=== PATIENT | male | born 1950 | race Caucasian/White ===

== ENCOUNTER → 2019-11-02 | Outpatient (CLI) | payer MEDICARE ==
--- NOTE | 2019-11-02 12:16 | ECGEPIP ---
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 By Navarro criteria No prior tracing for comparison Electronically Signed on 11-02-2019 12:16:22 EST by Serafin Israel
== END ==
LOC: M EKG 11:28
PROVIDERS: ATTEND Ophthalmology Retina Specialist
DX: H33.059 Total retinal detachment, unspecified eye (principal)

== ENCOUNTER → 2020-03-15 | Outpatient (CLI) | payer MEDICARE ==
[~2020-03-15] MED LIST: ASPI1CHW3 PO; ATOR80TA59 PO; GABA-843 PO; INDA25TAB PO; LISI-538 PO; LISI-542 PO
== END ==
LOC: M LABSMTC 12:15
PROVIDERS: ATTEND Ophthalmology Retina Specialist
DX: Z11.59 Encounter for screening for other viral diseases (principal)
CPT/HCPCS: C9803; U0003

== ENCOUNTER 2020-05-01 12:53 | Inpatient (IN) | payer MEDICARE ==
[~2020-05-01] VITALS: Ht 172.7 cm; Wt 90.3 kg
--- NOTE | 2020-05-01 13:50 | HPEPDOC ---
Cutter Barrel Drum Note DATE OF ADMISSION: 05-01-20 DATE OF SERVICE: 05-02-20 TIME OF ADMISSION: Please refer to physician's admission order. 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 MRI on 04-28-20 showed, Small acute infarct involving the posterior aspect of the left putamen and posterior limb of the left internal capsuleOld lacunar infarcts in the left basal ganglia and in the left ann-marie. He was started on aspirin, statin, and blood pressure medi cation. ECHO showed an LVEF of 52% and indeterminate diastolic function. He was noted to have new impairments in mobility and ADLs and deemed medically appropriate for discharge to ARU on 05-01-20. REVIEW OF SYSTEMS: The following is a completed review of systems and has been reviewed. Review of systems otherwise unremarkable. PAIN: Patient self reports no pain EYES: No recent vision changes EARS, NOSE, & THROAT: No throat pain, or dysphagia, or rhinorrhea CARDIOVASCULAR: Denies chest pain or palpitations PULMONARY: Denies shortness of breath GASTROINTESTINAL: Denies constipation/diarrhea GENITOURINARY:denies dysuria MUSCULOSKELETAL: right sided weakness NEUROLOGICAL: right sided paresis HEMATOLOGICAL: denies easy bruising SKIN: intact PSYCHIATRIC: Unremarkable All other review of systems found to be negative. PAST MEDICAL HISTORY: as per HPI PAST SURGICAL HISTORY: cataract ALLERGIES: Please see below. MEDICATIONS: Please see below. SOCIAL HISTORY: No etoh/smoking/illicit drugs DIET: low sodium PHYSICAL EXAMINATION: VITAL SIGNS: Please see below. GENERAL: Pleasant and cooperative. No acute distress. HEENT: PERRL. Extraocular movements intact. Clear conjunctiva CARDIOVASCULAR: Regular rate and rhythm. No murmurs, rubs, or gallops LUNGS: Clear to auscultation bilaterally. No wheezes. No rhonchi ABDOMEN: Soft, nontender, nondistended. Positive bowel sounds. Normal active bowel sounds NEUROLOGICAL: Alert and oriented times three. Cranial nerves II through XII grossly intact. Sensation diminished to light touch right side with extinction EXTREMITIES: 5\5 strength left upper extremities, 4/5 RUE with +pronator drift 4\5 strength right lower extremity. 5/5 strength in left lower extremity. SKIN: intact LABORATORY DATA: Please see below. IMAGING:Imaging documentation personally reviewed by record FUNCTIONAL STATUS: Premorbid: Independent with all activities of daily life as well as mobility On Admission: Min assist for bed mobility, ambulation, functional transfers GOALS: Mod-I household distances for ambulation, stairs, bathing, toileting, dressing ASSESSMENT:69-year-old M with past medical history of HTN who presents status post left sided CVA PLAN: 1. 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 Neuro- s/p left putamen and posterior limb of internal capsule infarct, c/u ASA, statin for secondary stroke prevention -SSRI for motor recovery 3. CArdiac- hx of HTN, c/u lisinopril, on diuretic Indapamide with recent ECHO indeterminate for diastolic dysfunction and LVEF 52%, will monitor for fluid overload -medicine consulted to assist in overall management 4. Resp- encourage incentive spirometry, monitor for infection 5. GI ppx- protonix 6. DVT ppx- heparin and TEDs 7. Pain- Tylenol prn 8. Dispo- TBD POST ADMISSION PHYSICIAN EVALUATION: Medical and functional status: Description of medical status, medical as sessment: As above. Rehabilitation diagnosis and current and prior cold morbid medical conditions as above. Risk of complications and plans to mitigate them as above. Description of functional status current status is as above. Prior status as above. Status compared to preadmission: There are no clinically significant differences between the patient's current status and the information described on the preadmission screening document. Treatment plan anticipated: Treatment plan is as described above. Required disciplines including physical therapy, occupational therapy, others as noted above. Intensity of services: 3 hours a day, 6 days a week. Special considerations: There are no specific special or safety considerations that would likely preclude immediate implementation of an intensive rehabilitation program or subsequently influence the plan of care. ATTESTATION: Considering all the information above, it is my best judgment that this patient requires intensive rehabilitation therapy as described above and an inpatient hospital environment due to the complexity of nursing, medical, and rehabilitation needs required by the patient. Furthermore, this patient can reasonably be expected to participate in an benefit from an inpatient rehabilitation stay with an interdisciplinary team approach to the delivery of rehabilitation care under the direction and supervision of rehabilitation physician. PROGNOSIS: Excellent ESTIMATED LENGTH OF STAY:10-14 days. PROJECTED DISCHARGE DESTINATION: Home with family support and any durable medical equipment required to increase functional safety and mobility. TIME SPENT COUNSELING AND COORDINATING INITIAL CARE: Greater than 70 minutes. Vital Signs Vital Signs Date Time Temp Pulse Resp B/P (MAP) Pulse Ox O2 Delivery O2 Flow Rate FiO2 05/01/20 15:15 96.8 61 18 141/86 (104) 98 Room Air Home Medications Scheduled Aspirin (Aspirin) 81 Mg Tab.chew, 81 MG PO DAILY, (Reported) Atorvastatin Calcium (Atorvastatin Calcium) 80 Mg Tablet, 80 MG PO DAILY, (Reported) Indapamide (Indapamide) 2.5 Mg Tablet, 5 MG PO DAILY, (Reported) Lisinopril (Lisinopril) 20 Mg Tablet, 20 MG PO DAILY, (Reported) Allergies Coded Allergies: No Known Allergies (Verified Allergy, Unknown, 05/01/20) A-FIB/CHADSVASC A-FIB History Current/History of A-Fib/PAF?: No KELIN ALLISON MD May 01, 2020 13:50
[2020-05-01 15:15] VITALS: BP 141/86
[2020-05-01] MEDS ORDERED: ASPI1CHW3 PO (15:49)
[2020-05-01] MEDS ORDERED: ATOR80TA59 PO (15:49)
[2020-05-01] MEDS ORDERED: INDA25TAB PO (15:49)
[2020-05-01] MEDS ORDERED: LISI-538 PO (15:49)
[2020-05-01] MEDS: REMEDY PHYTOPLEX Z-GUARD PASTE 113GM TUBE (FROM STOREROOM PRODUCT) TOP SCH ×2 (16:00→20:40)
[2020-05-01 20:31] VITALS: BP 122/75
[2020-05-01] MEDS: SENNA 8.6 MG TAB (SENOKOT) PO SCH (20:36)
[2020-05-01] MEDS: HEPARIN SOD (PORCINE) 5000UNITS/ML 1ML VIAL/SYRINGE SC SCH (20:36)
[2020-05-01] MEDS: DOCUSATE SODIUM 100 MG CAP PO SCH (20:37)
[2020-05-01] MEDS: ACETAMINOPHEN TAB 650MG DOSE (2X325MG) PO PRN (22:33)
[2020-05-02 06:00] VITALS: BP 132/73
[2020-05-02 07:03] LABS: BASO % 0.5 % (0.0-1.0); EOS # 0.2 10^3/uL (0.0-0.5); HEMATOCRIT 44.5 % (42.0-52.0); HEMOGLOBIN 15.2 g/dl (13.5-17.5); LYMPH # 1.5 10^3/uL (1.5-5.0); MEAN CORPUSCULAR HEMOGLOBIN 30.3 pg (27.0-33.0); MEAN CORPUSCULAR HGB CONC 34.2 g/dl (32.0-36.5); MEAN CORPUSCULAR VOLUME 88.6 fl (80.0-96.0); MONO # 1.1 10^3/uL (0.0-0.8); MONO % 13.3 % (0.0-5.0); NEUTROPHILS % 63.6 % (36.0-66.0); PLATELET COUNT, AUTOMATED 232 10^3/uL (150-450); RED BLOOD COUNT 5.02 10^6/uL (4.30-6.10); WHITE BLOOD COUNT 7.9 10^3/uL (4.0-10.0)
[2020-05-02 07:33] LABS: ALBUMIN 3.3 GM/DL (3.2-5.2); ALT/SGPT 11 U/L (12-78); BILIRUBIN,TOTAL 0.6 MG/DL (0.2-1.0); BLOOD UREA NITROGEN 22 MG/DL (7-18); CALCIUM LEVEL 8.6 MG/DL (8.8-10.2); CARBON DIOXIDE LEVEL 31 MEQ/L (21-32); CHLORIDE LEVEL 103 MEQ/L (98-107); CREATININE FOR GFR 1.24 MG/DL (0.70-1.30); GLOMERULAR FILTRATION RATE > 60.0 (>49); GLUCOSE, FASTING 83 MG/DL (70-100); POTASSIUM SERUM 3.9 MEQ/L (3.5-5.1); SODIUM LEVEL 139 MEQ/L (136-145); TOTAL PROTEIN 6.6 GM/DL (6.4-8.2)
[2020-05-02] MEDS: HEPARIN SOD (PORCINE) 5000UNITS/ML 1ML VIAL/SYRINGE SC SCH ×2 (08:33→20:11)
[2020-05-02] MEDS: ASPIRIN 81 MG ENTERIC TAB PO SCH (08:33)
[2020-05-02] MEDS: ATORVASTATIN 20 MG TAB PO SCH (08:33)
[2020-05-02] MEDS: lisinopriL 20 MG TAB PO SCH (08:33)
[2020-05-02] MEDS: PANTOPRAZOLE 40MG TAB (PROTONIX) PO SCH (08:33)
[2020-05-02] MEDS: INDAPAMIDE 1.25MG TABLET PO SCH (08:33)
[2020-05-02] MEDS: DOCUSATE SODIUM 100 MG CAP PO SCH ×2 (08:34→20:11)
[2020-05-02] MEDS: REMEDY PHYTOPLEX Z-GUARD PASTE 113GM TUBE (FROM STOREROOM PRODUCT) TOP SCH ×3 (08:34→20:12)
[2020-05-02 14:00] VITALS: BP 135/75
--- NOTE | 2020-05-02 18:13 | CR.PDOC ---
General Date of Consultation: May 02, 2020 Consultation Chief complaint: Presented to [facility] ARU for PT / OT History of present illness: Patient is a 69 year old female with a PMHx of HTN, DLP and Cataracts who presented to [facility] ARU for rehabilitation for PT and OT after he sustained an acute infarct of the of the L putamen and posterior limb of the left internal capsule. Patient reported that on 04/27 they had right arm and right leg weakness and was air lifted to [facility]. He had received TPA and had some improvement in his symptoms. Patient had an MRI of his brain (findings noted above), CTA of his head and neck that was unremarkable. ECHO reported EF of 50-55% without thrombus. Patient was started on aspirin and Plavix and was discharged to ARU. Currently patient denies any CP, SOB, palpitations, abdominal pain, C/D, or dysuria. Denies any recent fevers / chills. Past Medical History: HTN, DLP and Cataracts Past Surgical History: Cataract surgery Medications: See attached Family History: - No history of malignancies Social History: - Denies the use of tobacco or illicit drugs; reports he drinks alcohol socially (6 pack on the weekend) - Denies recent travel or sick contacts - Lives alone - Occupation; Retired [employer] Review of Systems: 10 point review of systems complete, all negative otherwise stated in HPI Physical exam: - Vitals: BP [135/75], HR [67], RR [16], Sat [93%RA], Temp [99.1F] - General: Lying in bed, No acute distress, Speaking in full sentences, AAOx3 - HEENT: NC, AT, PERRLA, EOMI - CVS: RRR, +S1S2 - Lungs: Fair air entry bilaterally, No appreciable wheezing / rales / rhonchi - Abdomen: Soft, Non-distended, Non-tender - Extremities: No lower extremity edema, No calf tenderness - Neuro: Mild weakness at RUE (4/5); 5/5 all else - Skin: No visible rashes Assessment and Plan: Acute CVA - Physical without any significant changes compared to documentation from [facility]; still with - Imaging reviewed - c/w ASA and Atorvastatin - Will continue with PT and OT as per ARU HTN - BP well controlled - c/w Lisinopril and Indapamide GERD - c/w Protonix DVT prophylaxis - c/w Heparin Vital Signs/I&O Vital Signs Date Time Temp Pulse Resp B/P (MAP) Pulse Ox O2 Delivery O2 Flow Rate FiO2 05/02/20 14:00 99.1 67 16 135/75 (95) 93 Room Air I&O- Last 24 Hours up to 6 AM 05/02/20 06:00 Intake Total 360 ml Balance 360 ml Laboratory Data Labs 24H Laboratory Tests 2 05/02/20 06:25: Immature Granulocyte % (Auto) 0.6, Neutrophils (%) (Auto) 63.6, Lymphocytes (%) (Auto) 19.0L, Monocytes (%) (Auto) 13.3H, Eosinophils (%) (Auto) 3.0, Basophils (%) (Auto) 0.5, Neutrophils # (Auto) 5.0, Lymphocytes # (Auto) 1.5, Monocytes # (Auto) 1.1H, Eosinophils # (Auto) 0.2, Basophils # (Auto) 0.0, Nucleated Red Blood Cells % (auto) 0.0, Anion Gap 5L, Glomerular Filtration Rate > 60.0, Calcium Level 8.6L, Total Bilirubin 0.6, Aspartate Amino Transf (AST/SGOT) 13, Alanine Aminotransferase (ALT/SGPT) 11L, Alkaline Phosphatase 83, Total Protein 6.6, Albumin 3.3, Albumin/Globulin Ratio 1.0 CBC/BMP Laboratory Tests 05/02/20 06:25 Allergies Coded Allergies: No Known Allergies (Verified Allergy, Unknown, 05/01/20) Home Medications Scheduled Aspirin (Aspirin) 81 Mg Tab.chew, 81 MG PO DAILY, (Reported) Atorvastatin Calcium (Atorvastatin Calcium) 80 Mg Tablet, 80 MG PO DAILY, (Reported) Indapamide (Indapamide) 2.5 Mg Tablet, 5 MG PO DAILY, (Reported) Lisinopril (Lisinopril) 20 Mg Tablet, 20 MG PO DAILY, (Reported) NADIYA RESENDEZ MD May 02, 2020 18:13
[2020-05-02 20:00] VITALS: BP 138/72
[2020-05-02] MEDS: SENNA 8.6 MG TAB (SENOKOT) PO SCH (20:12)
[2020-05-02] MEDS: ACETAMINOPHEN TAB 650MG DOSE (2X325MG) PO PRN (20:12)
[2020-05-03 04:59] VITALS: BP 154/75
[2020-05-03] MEDS: lisinopriL 20 MG TAB PO SCH (07:44)
[2020-05-03] MEDS: ASPIRIN 81 MG ENTERIC TAB PO SCH (07:44)
[2020-05-03] MEDS: HEPARIN SOD (PORCINE) 5000UNITS/ML 1ML VIAL/SYRINGE SC SCH ×2 (07:44→20:39)
[2020-05-03] MEDS: ATORVASTATIN 20 MG TAB PO SCH (07:45)
[2020-05-03] MEDS: DOCUSATE SODIUM 100 MG CAP PO SCH ×2 (07:45→20:39)
[2020-05-03] MEDS: INDAPAMIDE 1.25MG TABLET PO SCH (07:45)
[2020-05-03] MEDS: PANTOPRAZOLE 40MG TAB (PROTONIX) PO SCH (07:45)
[2020-05-03] MEDS: REMEDY PHYTOPLEX Z-GUARD PASTE 113GM TUBE (FROM STOREROOM PRODUCT) TOP SCH ×3 (07:46→20:39)
--- NOTE | 2020-05-03 10:17 | IPNPDOC ---
PM&R Progress Note DATE OF SERVICE: May 03, 2020 Duct Layer Helper Progress Note Subjective: Patient reporting his right hand and arm are tingling, but that he doesn't mind this sensation and wants to keep working on strengthening his hand. REVIEW OF SYSTEMS: The following is a completed review of systems and has been reviewed. Review of systems otherwise unremarkable. PAIN: Patient self reports no pain EYES: No recent vision changes EARS, NOSE, & THROAT: No throat pain, or dysphagia, or rhinorrhea CARDIOVASCULAR: Denies chest pain or palpitations PULMONARY: Denies shortness of breath GASTROINTESTINAL: Denies constipation/diarrhea GENITOURINARY:denies dysuria MUSCULOSKELETAL: right sided weakness NEUROLOGICAL: right sided paresis and RUE paresthesias HEMATOLOGICAL: denies easy bruising SKIN: intact PSYCHIATRIC: Unremarkable All other review of systems found to be negative. PHYSICAL EXAMINATION: VITAL SIGNS: Please see below. GENERAL: Pleasant and cooperative. No acute distress. HEENT: PERRL. Extraocular movements intact. Clear conjunctiva CARDIOVASCULAR: Regular rate and rhythm. No murmurs, rubs, or gallops LUNGS: Clear to auscultation bilaterally. No wheezes. No rhonchi ABDOMEN: Soft, nontender, nondistended. Positive bowel sounds. Normal active bowel sounds NEUROLOGICAL: Alert and oriented times three. Cranial nerves II through XII grossly intact. Sensation diminished to light touch right side with extinction EXTREMITIES: 5\5 strength left upper extremities, 4/5 RUE with +pronator drift 4\5 strength right lower extremity. 5/5 strength in left lower extremity. SKIN: intact ASSESSMENT:69-year-old M with past medical history of HTN who presents status post left sided CVA PLAN: 1. 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 Neuro- s/p left putamen and posterior limb of internal capsule infarct, c/u ASA, statin for secondary stroke prevention -SSRI for motor recovery -patient reporting pins and needles in hisr right hand which is not new since his stroke, but wants to hold off on treating this with nerve pain medication at this time 3. CArdiac- hx of HTN, c/u lisinopril, on diuretic Indapamide with recent ECHO indeterminate for diastolic dysfunction and LVEF 52%, will monitor for fluid overload -medicine consulted to assist in overall management 4. Resp- encourage incentive spirometry, monitor for infection 5. GI ppx- protonix 6. DVT ppx- heparin and TEDs 7. Pain- Tylenol prn 8. Dispo- TBD Allergies Coded Allergies: No Known Allergies (Verified Allergy, Unknown, 05/01/20) Vital Signs Vital Signs Date Time Temp Pulse Resp B/P (MAP) Pulse Ox O2 Delivery O2 Flow Rate FiO2 05/03/20 07:44 148/75 05/03/20 04:59 96.5 63 18 97 Room Air Current Medications Current Medications Current Medications Medications (Trade) Dose Ordered Sig/José Miguel Route PRN Reason Start Time Stop Time Status Last Admin Dose Admin Acetaminophen (Tylenol Tab) 650 mg Q4HP PRN PO fever/MILD PAIN (PS 1-4) 05/01/20 14:00 05/02/20 20:12 Aspirin (Ecotrin) 81 mg DAILY PO 05/02/20 09:00 05/03/20 07:44 Atorvastatin Calcium (Lipitor) 80 mg DAILY PO 05/02/20 09:00 05/03/20 07:45 Docusate Sodium (Colace) 100 mg BID PO 05/01/20 21:00 05/01/20 20:37 Heparin Sodium (Porcine) (Heparin) 5,000 units Q12H SC 05/01/20 21:00 05/03/20 07:44 Home Med (Med Rec Complete!) ASDIRECTED XX 05/01/20 16:00 05/01/20 16:03 DC Indapamide (Lozol) 5 mg DAILY PO 05/02/20 09:00 05/03/20 07:45 Lisinopril (Prinivil) 20 mg DAILY PO 05/02/20 09:00 05/03/20 07:44 Pantoprazole Sodium (Protonix) 40 mg DAILY PO 05/02/20 09:00 05/03/20 07:45 Senna (Senokot) 1 tab QHS PO 05/01/20 21:00 05/01/20 20:36 KELIN ALLISON MD May 03, 2020 10:16
[2020-05-03 14:00] VITALS: BP 125/76
[2020-05-03 20:00] VITALS: BP 133/84
[2020-05-03] MEDS: SENNA 8.6 MG TAB (SENOKOT) PO SCH (20:39)
[2020-05-04 06:00] VITALS: BP 123/69
[2020-05-04] MEDS: ASPIRIN 81 MG ENTERIC TAB PO SCH (08:58)
[2020-05-04] MEDS: HEPARIN SOD (PORCINE) 5000UNITS/ML 1ML VIAL/SYRINGE SC SCH ×2 (08:58→19:59)
[2020-05-04] MEDS: PANTOPRAZOLE 40MG TAB (PROTONIX) PO SCH (08:58)
[2020-05-04] MEDS: ATORVASTATIN 20 MG TAB PO SCH (08:58)
[2020-05-04] MEDS: lisinopriL 20 MG TAB PO SCH (08:59)
[2020-05-04] MEDS: DOCUSATE SODIUM 100 MG CAP PO SCH ×2 (09:00→20:00)
[2020-05-04] MEDS: REMEDY PHYTOPLEX Z-GUARD PASTE 113GM TUBE (FROM STOREROOM PRODUCT) TOP SCH ×3 (09:00→20:00)
[2020-05-04] MEDS: INDAPAMIDE 1.25MG TABLET PO SCH (09:00)
[2020-05-04] MEDS: GABAPENTIN 100 MG CAP PO SCH ×3 (11:05→20:00)
[2020-05-04 14:00] VITALS: BP 134/82
[2020-05-04 19:50] VITALS: BP 132/72
[2020-05-04] MEDS: ACETAMINOPHEN TAB 650MG DOSE (2X325MG) PO PRN (20:00)
[2020-05-04] MEDS: SENNA 8.6 MG TAB (SENOKOT) PO SCH (20:00)
[2020-05-05 06:14] VITALS: BP 134/68
[2020-05-05] MEDS: INDAPAMIDE 1.25MG TABLET PO SCH (08:50)
[2020-05-05] MEDS: DOCUSATE SODIUM 100 MG CAP PO SCH ×2 (08:51→20:02)
[2020-05-05] MEDS: PANTOPRAZOLE 40MG TAB (PROTONIX) PO SCH (08:51)
[2020-05-05] MEDS: ATORVASTATIN 20 MG TAB PO SCH (08:51)
[2020-05-05] MEDS: GABAPENTIN 100 MG CAP PO SCH ×3 (08:51→20:01)
[2020-05-05] MEDS: ASPIRIN 81 MG ENTERIC TAB PO SCH (08:51)
[2020-05-05] MEDS: HEPARIN SOD (PORCINE) 5000UNITS/ML 1ML VIAL/SYRINGE SC SCH ×2 (08:51→20:01)
[2020-05-05] MEDS: lisinopriL 20 MG TAB PO SCH (08:51)
[2020-05-05] MEDS: REMEDY PHYTOPLEX Z-GUARD PASTE 113GM TUBE (FROM STOREROOM PRODUCT) TOP SCH ×3 (08:52→20:01)
[2020-05-05 14:00] VITALS: BP 133/74
[2020-05-05 20:00] VITALS: BP 147/73
[2020-05-05] MEDS: ACETAMINOPHEN TAB 650MG DOSE (2X325MG) PO PRN (20:01)
[2020-05-05] MEDS: SENNA 8.6 MG TAB (SENOKOT) PO SCH (20:01)
[2020-05-06 05:51] VITALS: BP 123/71
[2020-05-06] MEDS: REMEDY PHYTOPLEX Z-GUARD PASTE 113GM TUBE (FROM STOREROOM PRODUCT) TOP SCH ×3 (09:00→20:13)
[2020-05-06] MEDS: DOCUSATE SODIUM 100 MG CAP PO SCH ×3 (09:00→20:13)
[2020-05-06] MEDS: PANTOPRAZOLE 40MG TAB (PROTONIX) PO SCH (09:34)
[2020-05-06] MEDS: ATORVASTATIN 20 MG TAB PO SCH (09:34)
[2020-05-06] MEDS: INDAPAMIDE 1.25MG TABLET PO SCH (09:34)
[2020-05-06] MEDS: lisinopriL 20 MG TAB PO SCH (09:34)
[2020-05-06] MEDS: ASPIRIN 81 MG ENTERIC TAB PO SCH (09:34)
[2020-05-06] MEDS: GABAPENTIN 100 MG CAP PO SCH ×2 (09:35→16:05)
[2020-05-06] MEDS: HEPARIN SOD (PORCINE) 5000UNITS/ML 1ML VIAL/SYRINGE SC SCH ×2 (09:35→20:12)
[2020-05-06 14:00] VITALS: BP 122/70
[2020-05-06 15:14] LABS: BASO % 0.4 % (0.0-1.0); EOS # 0.1 10^3/uL (0.0-0.5); EOS % 1.4 % (0.0-3.0); HEMATOCRIT 48.9 % (42.0-52.0); HEMOGLOBIN 16.1 g/dl (13.5-17.5); LYMPH # 1.4 10^3/uL (1.5-5.0); LYMPH % 13.8 % (24.0-44.0); MEAN CORPUSCULAR HEMOGLOBIN 29.4 pg (27.0-33.0); MEAN CORPUSCULAR HGB CONC 32.9 g/dl (32.0-36.5); MEAN CORPUSCULAR VOLUME 89.4 fl (80.0-96.0); MONO % 9.5 % (0.0-5.0); NEUTROPHILS # 7.5 10^3/uL (1.5-8.5); NEUTROPHILS % 74.3 % (36.0-66.0); PLATELET COUNT, AUTOMATED 269 10^3/uL (150-450); RED BLOOD COUNT 5.47 10^6/uL (4.30-6.10)
[2020-05-06 15:38] LABS: CALCIUM LEVEL 9.4 MG/DL (8.8-10.2); CREATININE FOR GFR 1.68 MG/DL (0.70-1.30); GLOMERULAR FILTRATION RATE 43.5 (>49); POTASSIUM SERUM 4.4 MEQ/L (3.5-5.1)
[2020-05-06 20:00] VITALS: BP 118/59
[2020-05-06] MEDS: GABAPENTIN 300 MG CAP PO SCH (20:12)
[2020-05-06] MEDS: ACETAMINOPHEN TAB 650MG DOSE (2X325MG) PO PRN (20:12)
[2020-05-06] MEDS: SENNA 8.6 MG TAB (SENOKOT) PO SCH (20:13)
[2020-05-07 05:17] VITALS: BP 115/64
[2020-05-07] MEDS: PANTOPRAZOLE 40MG TAB (PROTONIX) PO SCH (07:41)
[2020-05-07] MEDS: ASPIRIN 81 MG ENTERIC TAB PO SCH (07:41)
[2020-05-07] MEDS: GABAPENTIN 300 MG CAP PO SCH ×3 (07:41→20:47)
[2020-05-07] MEDS: ATORVASTATIN 20 MG TAB PO SCH (07:41)
[2020-05-07] MEDS: HEPARIN SOD (PORCINE) 5000UNITS/ML 1ML VIAL/SYRINGE SC SCH ×2 (07:41→20:47)
[2020-05-07] MEDS: INDAPAMIDE 1.25MG TABLET PO SCH (07:42)
[2020-05-07] MEDS: DOCUSATE SODIUM 100 MG CAP PO SCH ×2 (07:42→20:48)
[2020-05-07] MEDS: REMEDY PHYTOPLEX Z-GUARD PASTE 113GM TUBE (FROM STOREROOM PRODUCT) TOP SCH ×3 (07:43→20:47)
[2020-05-07] MEDS: lisinopriL 5 MG TAB PO SCH (07:43)
[2020-05-07 14:00] VITALS: BP 130/64
[2020-05-07 20:00] VITALS: BP 134/68
[2020-05-07] MEDS: SENNA 8.6 MG TAB (SENOKOT) PO SCH (20:47)
[2020-05-08 06:00] VITALS: BP 131/55
[2020-05-08] MEDS: ASPIRIN 81 MG ENTERIC TAB PO SCH (08:51)
[2020-05-08] MEDS: DOCUSATE SODIUM 100 MG CAP PO SCH ×2 (08:51→21:00)
[2020-05-08] MEDS: ATORVASTATIN 20 MG TAB PO SCH (08:51)
[2020-05-08] MEDS: GABAPENTIN 300 MG CAP PO SCH ×3 (08:51→21:24)
[2020-05-08] MEDS: PANTOPRAZOLE 40MG TAB (PROTONIX) PO SCH (08:51)
[2020-05-08] MEDS: lisinopriL 5 MG TAB PO SCH (08:52)
[2020-05-08] MEDS: INDAPAMIDE 1.25MG TABLET PO SCH (08:52)
[2020-05-08] MEDS: REMEDY PHYTOPLEX Z-GUARD PASTE 113GM TUBE (FROM STOREROOM PRODUCT) TOP SCH ×3 (08:53→21:00)
[2020-05-08] MEDS: HEPARIN SOD (PORCINE) 5000UNITS/ML 1ML VIAL/SYRINGE SC SCH ×2 (08:53→21:24)
[2020-05-08 14:00] VITALS: BP 138/63
--- NOTE | 2020-05-08 16:03 | IPNPDOC ---
PM&R Progress Note DATE OF SERVICE: May 06, 2020 Room Service Clerk Progress Note Subjective: Patient reporting his right hand and arm are less tingly and he would like to try a higher dose of gabapentin. REVIEW OF SYSTEMS: The following is a completed review of systems and has been reviewed. Review of systems otherwise unremarkable. PAIN: Patient self reports no pain EYES: No recent vision changes EARS, NOSE, & THROAT: No throat pain, or dysphagia, or rhinorrhea CARDIOVASCULAR: Denies chest pain or palpitations PULMONARY: Denies shortness of breath GASTROINTESTINAL: Denies constipation/diarrhea GENITOURINARY:denies dysuria MUSCULOSKELETAL: right sided weakness NEUROLOGICAL: right sided paresis and RUE paresthesias HEMATOLOGICAL: denies easy bruising SKIN: intact PSYCHIATRIC: Unremarkable All other review of systems found to be negative. PHYSICAL EXAMINATION: VITAL SIGNS: Please see below. GENERAL: Pleasant and cooperative. No acute distress. HEENT: PERRL. Extraocular movements intact. Clear conjunctiva CARDIOVASCULAR: Regular rate and rhythm. No murmurs, rubs, or gallops LUNGS: Clear to auscultation bilaterally. No wheezes. No rhonchi ABDOMEN: Soft, nontender, nondistended. Positive bowel sounds. Normal active bowel sounds NEUROLOGICAL: Alert and oriented times three. Cranial nerves II through XII grossly intact. Sensation diminished to light touch right side with extinction EXTREMITIES: 5\5 strength left upper extremities, 4/5 RUE with +pronator drift 4\5 strength right lower extremity. 5/5 strength in left lower extremity. SKIN: intact ASSESSMENT:69-year-old M with past medical history of HTN who presents status post left sided CVA PLAN: 1. 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 Neuro- s/p left putamen and posterior limb of internal capsule infarct, c/u ASA, statin for secondary stroke prevention -SSRI for motor recovery -patient reporting pins and needles in hisr right hand which is not new since his stroke -he was started on Gabapentin 100mg TID over the weekend with some response, will increase dose to 300mg TID 3. CArdiac- hx of HTN, c/u lisinopril, on diuretic Indapamide with recent ECHO indeterminate for diastolic dysfunction and LVEF 52%, will monitor for fluid overload -medicine consulted to assist in overall management 4. Resp- encourage incentive spirometry, monitor for infection 5. GI ppx- protonix 6. DVT ppx- heparin and TEDs 7. Pain- Tylenol prn 8. Dispo- TBD Allergies Coded Allergies: No Known Allergies (Verified Allergy, Unknown, 05/01/20) Vital Signs Vital Signs Date Time Temp Pulse Resp B/P (MAP) Pulse Ox O2 Delivery O2 Flow Rate FiO2 05/08/20 14:00 97.8 75 20 138/63 (88) 97 Room Air Current Medications Current Medications Current Medications Medications (Trade) Dose Ordered Sig/José Miguel Route PRN Reason Start Time Stop Time Status Last Admin Dose Admin Acetaminophen (Tylenol Tab) 650 mg Q4HP PRN PO fever/MILD PAIN (PS 1-4) 05/01/20 14:00 05/06/20 20:12 Aspirin (Ecotrin) 81 mg DAILY PO 05/02/20 09:00 05/08/20 08:51 Atorvastatin Calcium (Lipitor) 80 mg DAILY PO 05/02/20 09:00 05/08/20 08:51 Docusate Sodium (Colace) 100 mg BID PO 05/01/20 21:00 05/01/20 20:37 Gabapentin (Neurontin) 100 mg TID PO 05/04/20 09:00 05/06/20 17:35 DC 05/06/20 16:05 Gabapentin (Neurontin) 300 mg TID PO 05/06/20 21:00 05/08/20 15:08 Heparin Sodium (Porcine) (Heparin) 5,000 units Q12H SC 05/01/20 21:00 05/08/20 08:53 Home Med (Med Rec Complete!) ASDIRECTED XX 05/01/20 16:00 05/01/20 16:03 DC Indapamide (Lozol) 5 mg DAILY PO 05/02/20 09:00 05/08/20 08:52 Lisinopril (Prinivil) 5 mg DAILY PO 05/07/20 09:00 05/08/20 08:52 Lisinopril (Prinivil) 20 mg DAILY PO 05/02/20 09:00 05/06/20 17:35 DC 05/06/20 09:34 Pantoprazole Sodium (Protonix) 40 mg DAILY PO 05/02/20 09:00 9/2/20 08:51 Senna (Senokot) 1 tab [facility] PO 05/01/20 21:00 05/01/20 20:36 KELIN ALLISON MD May 08, 2020 16:03
--- NOTE | 2020-05-08 16:05 | IPNPDOC ---
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 REVIEW OF SYSTEMS: The following is a completed review of systems and has been reviewed. Review of systems otherwise unremarkable. PAIN: Patient self reports no pain EYES: No recent vision changes EARS, NOSE, & THROAT: No throat pain, or dysphagia, or rhinorrhea CARDIOVASCULAR: Denies chest pain or palpitations PULMONARY: Denies shortness of breath GASTROINTESTINAL: Denies constipation/diarrhea GENITOURINARY:denies dysuria MUSCULOSKELETAL: right sided weakness NEUROLOGICAL: right sided paresis and RUE paresthesias HEMATOLOGICAL: denies easy bruising SKIN: intact PSYCHIATRIC: Unremarkable All other review of systems found to be negative. PHYSICAL EXAMINATION: VITAL SIGNS: Please see below. GENERAL: Pleasant and cooperative. No acute distress. HEENT: PERRL. Extraocular movements intact. Clear conjunctiva CARDIOVASCULAR: Regular rate and rhythm. No murmurs, rubs, or gallops LUNGS: Clear to auscultation bilaterally. No wheezes. No rhonchi ABDOMEN: Soft, nontender, nondistended. Positive bowel sounds. Normal active bowel sounds NEUROLOGICAL: Alert and oriented times three. Cranial nerves II through XII grossly intact. Sensation diminished to light touch right side with extinction EXTREMITIES: 5\5 strength left upper extremities, 4/5 RUE with +pronator drift 4\5 strength right lower extremity. 5/5 strength in left lower extremity. SKIN: intact ASSESSMENT:69-year-old M with past medical history of HTN who presents status post left sided CVA PLAN: 1. 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 Neuro- s/p left putamen and posterior limb of internal capsule infarct, c/u ASA, statin for secondary stroke prevention -SSRI for motor recovery -patient reporting pins and needles in hisr right hand which is not new since his stroke -c/u gabapentin for paresthesia 300mg TID 3. CArdiac- hx of HTN, c/u lisinopril at lower dosing 5mg due to recent WES and repeat BMP, c/u diuretic Indapamide with recent ECHO indeterminate for diastolic dysfunction and LVEF 52%, will monitor for fluid overload -medicine consulted to assist in overall management 4. Resp- encourage incentive spirometry, monitor for infection 5. GI ppx- protonix 6. DVT ppx- heparin and TEDs 7. Pain- Tylenol prn 8. Dispo- 05-10-20 to home, progressing towards goals Allergies Coded Allergies: No Known Allergies (Verified Allergy, Unknown, 05/01/20) Vital Signs Vital Signs Date Time Temp Pulse Resp B/P (MAP) Pulse Ox O2 Delivery O2 Flow Rate FiO2 05/08/20 14:00 97.8 75 20 138/63 (88) 97 Room Air Current Medications Current Medications Current Medications Medications (Trade) Dose Ordered Sig/José Miguel Route PRN Reason Start Time Stop Time Status Last Admin Dose Admin Acetaminophen (Tylenol Tab) 650 mg Q4HP PRN PO fever/MILD PAIN (PS 1-4) 05/01/20 14:00 05/06/20 20:12 Aspirin (Ecotrin) 81 mg DAILY PO 05/02/20 09:00 05/08/20 08:51 Atorvastatin Calcium (Lipitor) 80 mg DAILY PO 05/02/20 09:00 05/08/20 08:51 Docusate Sodium (Colace) 100 mg BID PO 05/01/20 21:00 05/01/20 20:37 Gabapentin (Neurontin) 100 mg TID PO 05/04/20 09:00 05/06/20 17:35 DC 05/06/20 16:05 Gabapentin (Neurontin) 300 mg TID PO 05/06/20 21:00 05/08/20 15:08 Heparin Sodium (Porcine) (Heparin) 5,000 units Q12H SC 05/01/20 21:00 05/08/20 08:53 Home Med (Med Rec Complete!) ASDIRECTED XX 05/01/20 16:00 05/01/20 16:03 DC Indapamide (Lozol) 5 mg DAILY PO 05/02/20 09:00 05/08/20 08:52 Lisinopril (Prinivil) 5 mg DAILY PO 05/07/20 09:00 05/08/20 08:52 Lisinopril (Prinivil) 20 mg DAILY PO 05/02/20 09:00 05/06/20 17:35 DC 05/06/20 09:34 Pantoprazole Sodium (Protonix) 40 mg DAILY PO 05/02/20 09:00 05/08/20 08:51 Senna (Senokot) 1 tab QHS PO 05/01/20 21:00 05/01/20 20:36 KELIN ALLISON MD May 08, 2020 16:05
--- NOTE | 2020-05-08 16:05 | IPNPDOC ---
PM&R Progress Note DATE OF SERVICE: May 07, 2020 Search Planner Progress Note Subjective: Patient reporting his right hand and arm feel better, but that he still has a heavy feeling in his right arm, despite being able to use it well. REVIEW OF SYSTEMS: The following is a completed review of systems and has been reviewed. Review of systems otherwise unremarkable. PAIN: Patient self reports no pain EYES: No recent vision changes EARS, NOSE, & THROAT: No throat pain, or dysphagia, or rhinorrhea CARDIOVASCULAR: Denies chest pain or palpitations PULMONARY: Denies shortness of breath GASTROINTESTINAL: Denies constipation/diarrhea GENITOURINARY:denies dysuria MUSCULOSKELETAL: right sided weakness NEUROLOGICAL: right sided paresis and RUE paresthesias HEMATOLOGICAL: denies easy bruising SKIN: intact PSYCHIATRIC: Unremarkable All other review of systems found to be negative. PHYSICAL EXAMINATION: VITAL SIGNS: Please see below. GENERAL: Pleasant and cooperative. No acute distress. HEENT: PERRL. Extraocular movements intact. Clear conjunctiva CARDIOVASCULAR: Regular rate and rhythm. No murmurs, rubs, or gallops LUNGS: Clear to auscultation bilaterally. No wheezes. No rhonchi ABDOMEN: Soft, nontender, nondistended. Positive bowel sounds. Normal active bowel sounds NEUROLOGICAL: Alert and oriented times three. Cranial nerves II through XII grossly intact. Sensation diminished to light touch right side with extinction EXTREMITIES: 5\5 strength left upper extremities, 4/5 RUE with +pronator drift 4\5 strength right lower extremity. 5/5 strength in left lower extremity. SKIN: intact ASSESSMENT:69-year-old M with past medical history of HTN who presents status post left sided CVA PLAN: 1. 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 Neuro- s/p left putamen and posterior limb of internal capsule infarct, c/u ASA, statin for secondary stroke prevention -SSRI for motor recovery -patient reporting pins and needles in hisr right hand which is not new since his stroke -c/u agbapentin for paresthesia 300mg TID 3. CArdiac- hx of HTN, c/u lisinopril, on diuretic Indapamide with recent ECHO indeterminate for diastolic dysfunction and LVEF 52%, will monitor for fluid overload -medicine consulted to assist in overall management 4. Resp- encourage incentive spirometry, monitor for infection 5. GI ppx- protonix 6. DVT ppx- heparin and TEDs 7. Pain- Tylenol prn 8. Dispo- 05-10-20 to home, progressing towards goals Allergies Coded Allergies: No Known Allergies (Verified Allergy, Unknown, 05/01/20) Vital Signs Vital Signs Date Time Temp Pulse Resp B/P (MAP) Pulse Ox O2 Delivery O2 Flow Rate FiO2 05/08/20 14:00 97.8 75 20 138/63 (88) 97 Room Air Current Medications Current Medications Current Medications Medications (Trade) Dose Ordered Sig/José Miguel Route PRN Reason Start Time Stop Time Status Last Admin Dose Admin Acetaminophen (Tylenol Tab) 650 mg Q4HP PRN PO fever/MILD PAIN (PS 1-4) 05/01/20 14:00 05/06/20 20:12 Aspirin (Ecotrin) 81 mg DAILY PO 05/02/20 09:00 05/08/20 08:51 Atorvastatin Calcium (Lipitor) 80 mg DAILY PO 05/02/20 09:00 05/08/20 08:51 Docusate Sodium (Colace) 100 mg BID PO 05/01/20 21:00 05/01/20 20:37 Gabapentin (Neurontin) 100 mg TID PO 05/04/20 09:00 05/06/20 17:35 DC 05/06/20 16:05 Gabapentin (Neurontin) 300 mg TID PO 05/06/20 21:00 05/08/20 15:08 Heparin Sodium (Porcine) (Heparin) 5,000 units Q12H SC 05/01/20 21:00 05/08/20 08:53 Home Med (Med Rec Complete!) ASDIRECTED XX 05/01/20 16:00 05/01/20 16:03 DC Indapamide (Lozol) 5 mg DAILY PO 05/02/20 09:00 05/08/20 08:52 Lisinopril (Prinivil) 5 mg DAILY PO 05/07/20 09:00 05/08/20 08:52 Lisinopril (Prinivil) 20 mg DAILY PO 05/02/20 09:00 05/06/20 17:35 DC 05/06/20 09:34 Pantoprazole Sodium (Protonix) 40 mg DAILY PO 05/02/20 09:00 05/08/20 08:51 Estelita (Senokot) 1 tab [facility] PO 05/01/20 21:00 05/01/20 20:36 KELIN ALLISON MD May 08, 2020 16:05
[2020-05-08 20:00] VITALS: BP 130/66
[2020-05-08] MEDS: SENNA 8.6 MG TAB (SENOKOT) PO SCH (21:00)
[2020-05-09 05:58] VITALS: BP 130/77
[2020-05-09 08:14] LABS: BASO % 0.6 % (0.0-1.0); EOS # 0.2 10^3/uL (0.0-0.5); EOS % 3.3 % (0.0-3.0); HEMOGLOBIN 15.4 g/dl (13.5-17.5); LYMPH # 1.4 10^3/uL (1.5-5.0); LYMPH % 21.7 % (24.0-44.0); MEAN CORPUSCULAR HEMOGLOBIN 29.7 pg (27.0-33.0); MEAN CORPUSCULAR HGB CONC 33.5 g/dl (32.0-36.5); MEAN CORPUSCULAR VOLUME 88.8 fl (80.0-96.0); MONO # 0.7 10^3/uL (0.0-0.8); MONO % 11.3 % (0.0-5.0); NEUTROPHILS % 62.3 % (36.0-66.0); PLATELET COUNT, AUTOMATED 255 10^3/uL (150-450); RED BLOOD COUNT 5.18 10^6/uL (4.30-6.10); WHITE BLOOD COUNT 6.4 10^3/uL (4.0-10.0)
[2020-05-09 08:37] LABS: CALCIUM LEVEL 9.3 MG/DL (8.8-10.2); CREATININE FOR GFR 1.3 MG/DL (0.70-1.30); GLOMERULAR FILTRATION RATE 58.4 (>49); POTASSIUM SERUM 4.3 MEQ/L (3.5-5.1)
[2020-05-09] MEDS: REMEDY PHYTOPLEX Z-GUARD PASTE 113GM TUBE (FROM STOREROOM PRODUCT) TOP SCH ×3 (09:00→20:47)
[2020-05-09] MEDS: HEPARIN SOD (PORCINE) 5000UNITS/ML 1ML VIAL/SYRINGE SC SCH ×2 (09:59→20:47)
[2020-05-09] MEDS: ATORVASTATIN 20 MG TAB PO SCH (09:59)
[2020-05-09] MEDS: INDAPAMIDE 1.25MG TABLET PO SCH (09:59)
[2020-05-09] MEDS: PANTOPRAZOLE 40MG TAB (PROTONIX) PO SCH (09:59)
[2020-05-09] MEDS: lisinopriL 5 MG TAB PO SCH (10:00)
[2020-05-09] MEDS: DOCUSATE SODIUM 100 MG CAP PO SCH ×2 (10:00→20:46)
[2020-05-09] MEDS: GABAPENTIN 300 MG CAP PO SCH ×3 (10:00→20:46)
[2020-05-09] MEDS: ASPIRIN 81 MG ENTERIC TAB PO SCH (10:00)
[2020-05-09] MEDS ORDERED: GABA-843 PO (10:52)
[2020-05-09] MEDS ORDERED: ASPI1CHW3 PO (10:52)
[2020-05-09] MEDS ORDERED: LISI-542 PO (10:52)
[2020-05-09] MEDS ORDERED: INDA25TAB PO (10:52)
[2020-05-09] MEDS ORDERED: ATOR80TA59 PO (10:52)
[2020-05-09 14:00] VITALS: BP 139/85
[2020-05-09 20:00] VITALS: BP 136/70
[2020-05-09] MEDS: SENNA 8.6 MG TAB (SENOKOT) PO SCH (20:46)
[2020-05-10 06:00] VITALS: BP 131/75
[2020-05-10] MEDS: ATORVASTATIN 20 MG TAB PO SCH (08:45)
[2020-05-10] MEDS: GABAPENTIN 300 MG CAP PO SCH (08:45)
[2020-05-10] MEDS: PANTOPRAZOLE 40MG TAB (PROTONIX) PO SCH (08:45)
[2020-05-10] MEDS: ASPIRIN 81 MG ENTERIC TAB PO SCH (08:45)
[2020-05-10 08:46] VITALS: BP 131/75
[2020-05-10] MEDS: DOCUSATE SODIUM 100 MG CAP PO SCH (08:46)
[2020-05-10] MEDS: REMEDY PHYTOPLEX Z-GUARD PASTE 113GM TUBE (FROM STOREROOM PRODUCT) TOP SCH (08:46)
[2020-05-10] MEDS: INDAPAMIDE 1.25MG TABLET PO SCH (08:46)
[2020-05-10] MEDS: HEPARIN SOD (PORCINE) 5000UNITS/ML 1ML VIAL/SYRINGE SC SCH (08:46)
[2020-05-10] MEDS: lisinopriL 5 MG TAB PO SCH (08:46)
--- NOTE | 2020-05-10 10:47 | IPNPDOC ---
PM&R Progress Note DATE OF SERVICE: May 10, 2020 Political Aide Progress Note Subjective: Patient reporting he feel comfortable with room privileges and is ready to go home Wednesday. REVIEW OF SYSTEMS: The following is a completed review of systems and has been reviewed. Review of systems otherwise unremarkable. PAIN: Patient self reports no pain EYES: No recent vision changes EARS, NOSE, & THROAT: No throat pain, or dysphagia, or rhinorrhea CARDIOVASCULAR: Denies chest pain or palpitations PULMONARY: Denies shortness of breath GASTROINTESTINAL: Denies constipation/diarrhea GENITOURINARY:denies dysuria MUSCULOSKELETAL: right sided weakness NEUROLOGICAL: right sided paresis and RUE paresthesias HEMATOLOGICAL: denies easy bruising SKIN: intact PSYCHIATRIC: Unremarkable All other review of systems found to be negative. PHYSICAL EXAMINATION: VITAL SIGNS: Please see below. GENERAL: Pleasant and cooperative. No acute distress. HEENT: PERRL. Extraocular movements intact. Clear conjunctiva CARDIOVASCULAR: Regular rate and rhythm. No murmurs, rubs, or gallops LUNGS: Clear to auscultation bilaterally. No wheezes. No rhonchi ABDOMEN: Soft, nontender, nondistended. Positive bowel sounds. Normal active bowel sounds NEUROLOGICAL: Alert and oriented times three. Cranial nerves II through XII grossly intact. Sensation diminished to light touch right side with extinction EXTREMITIES: 5\5 strength left upper extremities, 4/5 RUE with +pronator drift 4\5 strength right lower extremity. 5/5 strength in left lower extremity. SKIN: intact ASSESSMENT:69-year-old M with past medical history of HTN who presents status post left sided CVA PLAN: 1. 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 Neuro- s/p left putamen and posterior limb of internal capsule infarct, c/u ASA, statin for secondary stroke prevention -SSRI for motor recovery -patient reporting pins and needles in hisr right hand which is not new since his stroke -c/u gabapentin for paresthesia 300mg TID 3. CArdiac- hx of HTN, c/u lisinopril at lower dosing 5mg due to recent WES and with near resolution of his WES, c/u diuretic Indapamide with recent ECHO indeterminate for diastolic dysfunction and LVEF 52%, will monitor for fluid overload -medicine consulted to assist in overall management 4. Resp- encourage incentive spirometry, monitor for infection 5. GI ppx- protonix 6. DVT ppx- heparin and TEDs 7. Pain- Tylenol prn 8. Dispo- 05-10-20 to home, progressing towards goals Allergies Coded Allergies: No Known Allergies (Verified Allergy, Unknown, 05/01/20) Vital Signs Vital Signs Date Time Temp Pulse Resp B/P (MAP) Pulse Ox O2 Delivery O2 Flow Rate FiO2 05/10/20 08:46 131/75 05/10/20 06:00 98.0 64 18 99 Room Air Current Medications Current Medications Current Medications Medications (Trade) Dose Ordered Sig/José Miguel Route PRN Reason Start Time Stop Time Status Last Admin Dose Admin Acetaminophen (Tylenol Tab) 650 mg Q4HP PRN PO fever/MILD PAIN (PS 1-4) 05/01/20 14:00 05/06/20 20:12 Aspirin (Ecotrin) 81 mg DAILY PO 05/02/20 09:00 05/10/20 08:45 Atorvastatin Calcium (Lipitor) 80 mg DAILY PO 05/02/20 09:00 05/10/20 08:45 Docusate Sodium (Colace) 100 mg BID PO 05/01/20 21:00 05/09/20 10:00 Gabapentin (Neurontin) 100 mg TID PO 05/04/20 09:00 05/06/20 17:35 DC 05/06/20 16:05 Gabapentin (Neurontin) 300 mg TID PO 05/06/20 21:00 05/10/20 08:45 Heparin Sodium (Porcine) (Heparin) 5,000 units Q12H SC 05/01/20 21:00 05/09/20 09:59 Home Med (Med Rec Complete!) ASDIRECTED XX 05/01/20 16:00 05/01/20 16:03 DC Indapamide (Lozol) 5 mg DAILY PO 05/02/20 09:00 05/10/20 08:46 Lisinopril (Prinivil) 5 mg DAILY PO 05/07/20 09:00 05/10/20 08:46 Lisinopril (Prinivil) 20 mg DAILY PO 05/02/20 09:00 05/06/20 17:35 DC 05/06/20 09:34 Pantoprazole Sodium (Protonix) 40 mg DAILY PO 05/02/20 09:00 05/10/20 08:45 Senna (Senokot) 1 tab QHS PO 05/01/20 21:00 05/01/20 20:36 KELIN ALLISON MD May 10, 2020 10:47
--- NOTE | 2020-06-04 10:49 | DSES ---
DATE OF ADMISSION: 05/01/2020 DATE OF DISCHARGE: 05/10/2020 CHIEF COMPLAINT/DISCHARGE DIAGNOSIS: Stroke. 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 MRI on 04/28/2020 showed small acute infarct involving the posterior aspect of the left putamen and posterior limb of the left internal capsuleold lacunar infarcts in the left basal ganglia and in the left ann-marie. He was started on aspirin, statin, and blood pressure medication. Echo showed an LVEF of 52% and indeterminate diastolic function. He was noted to have impairments in mobility and ADLs and deemed medically appropriate for discharge to ARU on 05/01/2020. PAST MEDICAL HISTORY: As per HPI. HOSPITAL COURSE: Patient was admitted and enrolled in a comprehensive PT/OT and speech and language pathology program. He received 24 hour nursing supervision, and weekly team meetings were held to discuss his progress. Patient was maintained on lisinopril and diuretic, indapamide. However, his lisinopril dosing was lowered due to rising creatinine levels which did improve following decrease of the lisinopril dosing. Patient reported pins and needles in his right arm and hand which was treated with gabapentin with resolution of the neuropathic pain. However, patient still reported some decreased sensation in the right arm. He was maintained on aspirin and statin for secondary stroke prevention and SSRI for motor recovery, made significant gains in therapy, and was deemed medically and functionally stable to return home. DISCHARGE MEDICATIONS: As per instructions. FUNCTIONAL HISTORY: On discharge, the patient was independent without the use of an assistive device for ambulation and for all ADLs. Thank you for this referral. LAUREN
== END 2020-05-10 13:24 | disposition home or self-care (01) | DRG 57 ==
LOC: M PM&R 14:58
PROVIDERS: ADMIT Physical Medicine & Rehabilitation; ATTEND Physical Medicine & Rehabilitation
DX: I69.351 Hemiplegia and hemiparesis following cerebral infarction affecting right dominant side (principal); N17.9 Acute kidney failure, unspecified; I10 Essential (primary) hypertension; E78.5 Hyperlipidemia, unspecified; K21.9 Gastro-esophageal reflux disease without esophagitis; R26.89 Other abnormalities of gait and mobility; Z98.49 Cataract extraction status, unspecified eye; Z79.899 Other long term (current) drug therapy; Z79.82 Long term (current) use of aspirin

== ENCOUNTER → 2020-05-18 | Outpatient (CLI) | payer MEDICARE | LOC: M LABSMTC 11:27 | PROVIDERS: ATTEND Anesthesiology | DX: Z01.818 Encounter for other preprocedural examination (principal); Z11.59 Encounter for screening for other viral diseases; Z20.828 Contact with and (suspected) exposure to other viral communicable diseases | CPT/HCPCS: C9803; U0003 ==

== ENCOUNTER 2020-05-23 10:46 | Day surgery (SDC) | payer MEDICARE ==
[~2020-05-23] VITALS: Ht 172.7 cm; Wt 88.0 kg
[~2020-05-23 10:46] MED LIST changes: +DUOVISC (0.50ML VISCOAT/0.55ML PROVISC) OPHTH KIT As Ordered ONE; +OFLOXACIN 0.3 % (OCUFLOX) OPTH SOL 5ML OD ONE; +PHENYLEPHRINE 2.5% OPHTH SOL 2ML OD ONE; +POVIDONE-IODINE 5% OPHTH PREP SOL 30ML As Ordered ONE; +PROPARACAINE 0.5% OPHTH SOL 15ML OD ONE; +TROPICAMIDE 1% OPHTH SOLN 2ML OD ONE
[2020-05-23] MEDS ORDERED: OFLOXACIN 0.3 % (OCUFLOX) OPTH SOL 5ML As Ordered ONE (11:39)
[2020-05-23] MEDS ORDERED: TROPICAMIDE 1% OPHTH SOLN 2ML As Ordered ONE (11:39)
[2020-05-23] MEDS ORDERED: PHENYLEPHRINE 2.5% OPHTH SOL 2ML As Ordered ONE (11:39)
[2020-05-23] MEDS ORDERED: BSS IRR 500ML/OMIDRIA 4ML IRR BAG (OR ONLY) (J1097 PER ML) As Ordered ONE (12:27)
[2020-05-23] MEDS ORDERED: CEFUROXIME 1MG/0.1ML INTRACAMERAL INJ As Ordered ONE (12:27)
[2020-05-23] MEDS ORDERED: MIDAZOLAM INJ 2MG/2ML VIAL (J2250 PER 1MG) As Ordered ONE (12:57)
[2020-05-23] MEDS ORDERED: fentaNYL 100 MCG/2 ML INJECTION (J3010) As Ordered ONE (12:57)
[2020-05-23] MEDS ORDERED: propofoL 200 MG/20 ML VIAL As Ordered ONE (13:37)
[2020-05-23 13:55] VITALS: BP 138/78
== END 2020-05-23 17:25 | disposition home or self-care (01) ==
LOC: M SDC 10:46
PROVIDERS: ATTEND Ophthalmology
DX: H25.11 Age-related nuclear cataract, right eye (principal); I10 Essential (primary) hypertension; E78.00 Pure hypercholesterolemia, unspecified; Z79.82 Long term (current) use of aspirin; Z86.73 Personal history of transient ischemic attack (TIA), and cerebral infarction without residual deficits; Z98.42 Cataract extraction status, left eye
CPT/HCPCS: 66984; J1097; J2250; J3010; V2632

== ENCOUNTER 2022-03-19 12:58 | Inpatient (IN) | payer MEDICARE ==
[~2022-03-19] VITALS: Ht 172.7 cm; Wt 77.5 kg
[~2022-03-19 12:58] MED LIST changes: -DUOVISC (0.50ML VISCOAT/0.55ML PROVISC) OPHTH KIT As Ordered ONE; +GABA-282 PO; -GABA-843 PO; -LISI-538 PO; -LISI-542 PO; +LISI20TA33 PO; +LISI5TAB11 PO; -OFLOXACIN 0.3 % (OCUFLOX) OPTH SOL 5ML OD ONE; -PHENYLEPHRINE 2.5% OPHTH SOL 2ML OD ONE; -POVIDONE-IODINE 5% OPHTH PREP SOL 30ML As Ordered ONE; -PROPARACAINE 0.5% OPHTH SOL 15ML OD ONE; -TROPICAMIDE 1% OPHTH SOLN 2ML OD ONE
[2022-03-19 16:21] LABS: BASO % 0.3 % (0.0-1.0); EOS % 0.1 % (0.0-3.0); LYMPH # 0.9 10^3/uL (1.5-5.0); LYMPH % 7.8 % (24.0-44.0); MEAN CORPUSCULAR HEMOGLOBIN 28.8 pg (27.0-33.0); MEAN CORPUSCULAR HGB CONC 33.3 g/dl (32.0-36.5); MEAN CORPUSCULAR VOLUME 86.5 fl (80.0-96.0); MONO % 16.5 % (2.0-8.0); NEUTROPHILS # 8.1 10^3/uL (1.5-8.5); NEUTROPHILS % 74.9 % (36.0-66.0); PLATELET COUNT, AUTOMATED 297 10^3/uL (150-450); RED BLOOD COUNT 6.24 10^6/uL (4.30-6.10); WHITE BLOOD COUNT 10.8 10^3/uL (4.0-10.0)
[2022-03-19 16:37] LABS: BILIRUBIN,DIRECT 0.2 MG/DL (0.0-0.2); BILIRUBIN,TOTAL 0.8 MG/DL (0.2-1.0); TOTAL PROTEIN 7.9 GM/DL (6.4-8.2)
[2022-03-19 16:45] LABS: RSV AMPLIFICATION NEGATIVE (NEGATIVE)
[2022-03-19 17:00] LABS: MONO # 1.8 10^3/uL (0.0-0.8)
[2022-03-19] MEDS ORDERED: NS 1,000 ML IV ONE (17:30)
[2022-03-19] MEDS ORDERED: KCL 10MEQ/100ML SWI (KRUN) 10 MEQ in IV 1 EA IV ONE (20:10)
[2022-03-19] MEDS ORDERED: LR 1,000 ML IV SCH (20:50)
[2022-03-19] MEDS ORDERED: D-101000 PO (22:41)
[2022-03-19] MEDS ORDERED: VITA500T40 PO (22:41)
[2022-03-19] MEDS ORDERED: C 50TAB PO (22:41)
[2022-03-19] MEDS ORDERED: VITAE40CA PO (22:41)
[2022-03-19] MEDS ORDERED: HOME MED LIST COMPLETE! XX SCH (22:45)
[2022-03-19] MEDS: NS 1,000 ML IV SCH (23:35)
[2022-03-19] MEDS ORDERED: ACETAMINOPHEN TAB 650MG DOSE (2X325MG) PO PRN (23:35)
[2022-03-19] MEDS ORDERED: HYDROMORPHONE HCL 0.5 MG/ 0.5 ML SYRINGE (J1170 PER 1) IV PRN (23:35)
[2022-03-20 00:50] VITALS: BP 151/92
[2022-03-20] MEDS ORDERED: PANTOPRAZOLE 40MG VIAL IV ONE (01:00)
[2022-03-20 05:05] VITALS: BP_SYST 101; BP_SYST 128; BP_DIAS 34; BP_DIAS 76
[2022-03-20] MEDS: HEPARIN SOD (PORCINE) 5000UNITS/ML 1ML VIAL/SYRINGE SC SCH ×3 (05:40→21:34)
[2022-03-20 05:51] LABS: HEMATOCRIT 49.8 % (42.0-52.0); HEMOGLOBIN 16.7 g/dl (13.5-17.5); MEAN CORPUSCULAR HEMOGLOBIN 29.2 pg (27.0-33.0); MEAN CORPUSCULAR HGB CONC 33.5 g/dl (32.0-36.5); MEAN CORPUSCULAR VOLUME 87.1 fl (80.0-96.0); PLATELET COUNT, AUTOMATED 244 10^3/uL (150-450); RED BLOOD COUNT 5.72 10^6/uL (4.30-6.10); WHITE BLOOD COUNT 11.9 10^3/uL (4.0-10.0)
[2022-03-20 06:21] LABS: CALCIUM LEVEL 8.3 MG/DL (8.8-10.2); CREATININE FOR GFR 1.62 MG/DL (0.70-1.30); GLOMERULAR FILTRATION RATE 45.1 (>42); MAGNESIUM LEVEL 3.5 MG/DL (1.8-2.4); POTASSIUM SERUM 3.3 MEQ/L (3.5-5.1)
[2022-03-20] MEDS: NS 1,000 ML IV SCH ×3 (07:42→23:32)
[2022-03-20] MEDS: KCL 10MEQ/100ML SWI (KRUN) 10 MEQ in IV 1 EA IV SCH ×4 (09:33→12:49)
[2022-03-20 14:00] VITALS: BP 147/76
[2022-03-20 22:30] VITALS: BP 154/86
[2022-03-20] MEDS ORDERED: diphenhydrAMINE 50MG/ML VIAL (J1200) IV ONE (22:30)
[2022-03-21 05:26] VITALS: BP 158/92
[2022-03-21] MEDS: HEPARIN SOD (PORCINE) 5000UNITS/ML 1ML VIAL/SYRINGE SC SCH ×3 (05:27→21:00)
[2022-03-21 07:54] LABS: HEMATOCRIT 49.3 % (42.0-52.0); HEMOGLOBIN 16.1 g/dl (13.5-17.5); MEAN CORPUSCULAR HEMOGLOBIN 29.1 pg (27.0-33.0); MEAN CORPUSCULAR HGB CONC 32.7 g/dl (32.0-36.5); MEAN CORPUSCULAR VOLUME 89.2 fl (80.0-96.0); PLATELET COUNT, AUTOMATED 240 10^3/uL (150-450); RED BLOOD COUNT 5.53 10^6/uL (4.30-6.10); WHITE BLOOD COUNT 7.9 10^3/uL (4.0-10.0)
[2022-03-21 08:31] LABS: ALT/SGPT 10 U/L (12-78); BILIRUBIN,TOTAL 0.8 MG/DL (0.2-1.0); BLOOD UREA NITROGEN 35 MG/DL (7-18); CALCIUM LEVEL 8.1 MG/DL (8.8-10.2); CARBON DIOXIDE LEVEL 32 MEQ/L (21-32); CHLORIDE LEVEL 105 MEQ/L (98-107); CREATININE FOR GFR 1.16 MG/DL (0.70-1.30); GLOMERULAR FILTRATION RATE > 60.0 (>42); GLUCOSE, FASTING 75 MG/DL (70-100); POTASSIUM SERUM 3.4 MEQ/L (3.5-5.1); SODIUM LEVEL 144 MEQ/L (136-145); TOTAL PROTEIN 6.6 GM/DL (6.4-8.2)
[2022-03-21] MEDS: NS 1,000 ML IV SCH ×2 (14:34→23:46)
[2022-03-21 16:00] VITALS: BP 154/90
[2022-03-21] MEDS ORDERED: POTASSIUM CHLORIDE 10MEQ SR TABLET PO ONE (16:00)
[2022-03-21] MEDS: CYANOCOBALAMIN 500 MCG TAB PO SCH (17:25)
[2022-03-21 21:02] VITALS: BP 125/55
[2022-03-21] MEDS ORDERED: MORPHINE 2 MG/ML 1ML VIAL IV PRN (23:20)
[2022-03-21 23:55] VITALS: BP 149/70
[2022-03-22 05:25] VITALS: BP 139/62
[2022-03-22] MEDS: HEPARIN SOD (PORCINE) 5000UNITS/ML 1ML VIAL/SYRINGE SC SCH ×2 (05:25→14:29)
[2022-03-22 06:42] LABS: HEMATOCRIT 47.2 % (42.0-52.0); HEMOGLOBIN 15.6 g/dl (13.5-17.5); MEAN CORPUSCULAR HEMOGLOBIN 29.3 pg (27.0-33.0); MEAN CORPUSCULAR HGB CONC 33.1 g/dl (32.0-36.5); MEAN CORPUSCULAR VOLUME 88.7 fl (80.0-96.0); PLATELET COUNT, AUTOMATED 232 10^3/uL (150-450); RED BLOOD COUNT 5.32 10^6/uL (4.30-6.10); WHITE BLOOD COUNT 9.6 10^3/uL (4.0-10.0)
[2022-03-22 07:05] LABS: ALBUMIN 2.8 GM/DL (3.2-5.2); ALT/SGPT 10 U/L (12-78); BILIRUBIN,TOTAL 0.6 MG/DL (0.2-1.0); BLOOD UREA NITROGEN 20 MG/DL (7-18); CALCIUM LEVEL 8.3 MG/DL (8.8-10.2); CARBON DIOXIDE LEVEL 27 MEQ/L (21-32); CHLORIDE LEVEL 109 MEQ/L (98-107); CREATININE FOR GFR 0.97 MG/DL (0.70-1.30); GLOMERULAR FILTRATION RATE > 60.0 (>42); GLUCOSE, FASTING 101 MG/DL (70-100); POTASSIUM SERUM 3.9 MEQ/L (3.5-5.1); SODIUM LEVEL 142 MEQ/L (136-145); TOTAL PROTEIN 6.4 GM/DL (6.4-8.2)
[2022-03-22] MEDS ORDERED: COLA100C5 PO (07:53)
[2022-03-22] MEDS ORDERED: SENN-80 PO (07:53)
[2022-03-22] MEDS ORDERED: MIRA3350 PO (07:53)
[2022-03-22] MEDS: CYANOCOBALAMIN 500 MCG TAB PO SCH (09:42)
[2022-03-22] MEDS: NS 1,000 ML IV SCH (12:36)
[2022-03-22 14:00] VITALS: BP 147/73
== END 2022-03-22 18:28 | disposition home or self-care (01) | DRG 389 ==
LOC: M ED 12:58 → M ED INP 23:33 → M MSPAV 03-20 00:47
PROVIDERS: ADMIT Internal Medicine; ATTEND Internal Medicine
DX: K56.600 Partial intestinal obstruction, unspecified as to cause (principal); E87.1 Hypo-osmolality and hyponatremia; D75.1 Secondary polycythemia; E87.6 Hypokalemia; N21.0 Calculus in bladder; Z79.899 Other long term (current) drug therapy; E86.0 Dehydration